=== PATIENT | male | born 1980 | race African-American/Black ===

== ENCOUNTER 2016-10-02 00:49 | Emergency (ER) | payer BC ==
[~2016-10-02 00:49] MED LIST: KEFLEX PO; VICODIN 5/500 T1 TAB PO
== END 2016-10-02 01:50 | disposition home or self-care (01) ==
LOC: CED 00:49
DX: L73.9 Follicular disorder, unspecified (principal); F17.200 Nicotine dependence, unspecified, uncomplicated
CPT/HCPCS: 99282

== ENCOUNTER 2016-12-09 23:42 | Emergency (ER) | payer BC ==
[~2016-12-09] VITALS: Ht 172.7 cm; Wt 77.1 kg
[2016-12-10 03:22] LABS: BUN/CREATININE RATIO 16.66; CALCIUM SERUM 9.1 mg/dL (8.4-10.2); CREATININE SERUM 1.2 mg/dL (0.6-1.4); GLOM FILT RATE Estimated 91.6 mL/min (>60)
[2016-12-10 04:57] LABS: URINE APPEARANCE CLOUDY; URINE BILIRUBIN NEG (NEG); URINE BLOOD NEG (NEG); URINE COLOR YELLOW; URINE GLUCOSE NEG (NEG); URINE KETONE TRACE (NEG); URINE LEUKOCYTE ESTERASE NEG (NEG); URINE NITRATE NEG (NEG); URINE PROTEIN TRACE (NEG); URINE SPECIFIC GRAVITY 1.032 (1.003-1.035)
[2016-12-10 05:02] LABS: CULTURE INDICATED? NO
== END 2016-12-10 05:40 | disposition home or self-care (01) ==
LOC: CED 23:42
PROVIDERS: Nurse Practitioner Family
DX: S39.012A Strain of muscle, fascia and tendon of lower back, initial encounter (principal); F17.210 Nicotine dependence, cigarettes, uncomplicated; X58.XXXA Exposure to other specified factors, initial encounter
CPT/HCPCS: 36415; 80048; 81003; 96372; 99283; J1885